=== PATIENT | female | born 1995 | race African-American/Black ===

== ENCOUNTER 2019-12-08 14:18 | Emergency (ER) | payer OTHER ==
--- NOTE | 2019-12-08 15:15 | ER Document Report ---
ED Medical Screen (RME) - General Chief Complaint: Abdominal Pain Stated Complaint: ABDOMINAL PAIN Time Seen by Provider: 12/08/19 15:11 Mode of Arrival: Ambulatory Information source: Patient Notes: 24-year-old female presents to ED for complaint of left pelvic pain. She states her menstrual cycle is due on 30 November. She states it started on the but only lasted 2 days normally she has a 5-day cycle. She states that she started again today and it was like jelly clots on the end of the tampon. She states she does not smoke she does socially drink does not use any drugs and has no medical history. She states she does have a family history of ovarian cancer and is concerned. Patient is alert oriented respirations regular nonlabored speaking in full sentences. I have greeted and performed a rapid initial assessment of this patient. A comprehensive ED assessment and evaluation of the patient, analysis of test results and completion of medical decision making process will be conducted by an additional ED providers. Physical Exam - Vital signs Vitals: Temp Pulse Resp BP Pulse Ox 98.7 F 90 16 120/60 98 12/08/19 14:37 12/08/19 14:37 12/08/19 14:37 12/08/19 14:37 12/08/19 14:37 Course - Vital Signs Vital signs: Temp Pulse Resp BP Pulse Ox 98.7 F 90 16 120/60 98 12/08/19 14:37 12/08/19 14:37 12/08/19 14:37 12/08/19 14:37 12/08/19 14:37
--- NOTE | 2019-12-08 16:25 | RADIOLOGY REPORT (SQ) ---
EXAM DESCRIPTION: U/S NON-OB PELVIS TV W/O DOP IMAGES COMPLETED DATE/TIME: 12/08/2019 2:48 pm REASON FOR STUDY: Left pelvic pain see HPI COMPARISON: None. TECHNIQUE: Dynamic and static grayscale images acquired of the pelvis via transvaginal approach and recorded on PACS. Additional selected color Doppler and spectral images recorded. LIMITATIONS: None. FINDINGS: UTERUS: Contour normal. No mass. ENDOMETRIAL STRIPE: No focal or generalized thickening. No masses. CERVIX: No nabothian cysts. RIGHT OVARY AND DOPPLER: Normal size. Multiple small ovarian follicles. No worrisome masses. Normal arterial vascular flow without evidence for torsion. LEFT OVARY AND DOPPLER: Normal size. Small ovarian follicles. No worrisome masses. Normal arterial vascular flow without evidence for torsion. FREE FLUID: None noted. OTHER: No other significant finding. MEASUREMENTS: UTERUS: 8.2 x 4.9 x 5 cm ENDOMETRIAL STRIPE: 6 mm RIGHT OVARY: 3.6 x 1.7 x 2.5 cm LEFT OVARY: 2.8 x 1.6 x 1.9 cm IMPRESSION: No sonographic abnormality of the uterus or ovaries. TECHNICAL DOCUMENTATION: JOB ID: [id number] [employer]- All Rights Reserved Rev-07/23 Reading location - IP/workstation name: [email or web address]
[2019-12-08 16:50] LABS: ABSOLUTE EOSINOPHILS # (AUTO) 0.1 10^3/uL (0.0-0.6); ABSOLUTE LYMPHOCYTES (AUTO) 2.6 10^3/uL (0.5-4.7); ABSOLUTE MONOCYTES (AUTO) 0.5 10^3/uL (0.1-1.4); ABSOLUTE NEUT (AUTO) 2.6 10^3/uL (1.7-8.2); BASOPHILS % (AUTO) 0.8 % (0-2); EOSINOPHILS % (AUTO) 1.4 % (0-6); HEMOGLOBIN 13.1 g/dL (12.0-15.5); MEAN CORPUSCULAR HEMOGLOBIN 25.3 pg (27.0-33.4); MEAN CORPUSCULAR HGB CONC 32.7 g/dL (32.0-36.0); MEAN CORPUSCULAR VOLUME 78 fl (80-97); MONOCYTES % (AUTO) 8.7 % (3-13); PLATELET COUNT 348 10^3/uL (150-450); RED BLOOD COUNT 5.16 10^6/uL (3.72-5.28); RED CELL DISTRIBUTION WIDTH 18.8 % (11.5-14.0); SEGMENTED NEUTROPHILS % (AUTO) 45.1 % (42-78); TOTAL CELLS COUNTED % (AUTO) 100 %; WHITE BLOOD COUNT 5.8 10^3/uL (4.0-10.5)
[2019-12-08 17:02] LABS: ALBUMIN 4.6 g/dL (3.5-5.0); ALKALINE PHOSPHATASE 68 U/L (38-126); ANION GAP 11 (5-19); ASPARTATE AMINO TRANSFERASE 24 U/L (14-36); BILIRUBIN,DIRECT 0.4 mg/dL (0.0-0.4); BILIRUBIN,TOTAL 0.8 mg/dL (0.2-1.3); BLOOD UREA NITROGEN 8 mg/dL (7-20); CALCIUM 9.4 mg/dL (8.4-10.2); CARBON DIOXIDE 26 mmol/L (22-30); CHLORIDE 104 mmol/L (98-107); GLUCOSE 89 mg/dL (75-110); NEONATAL BILIRUBIN RESULT 0.4 mg/dL (0.1-1.1); POTASSIUM 4.3 mmol/L (3.6-5.0); TOTAL PROTEIN 8.3 g/dL (6.3-8.2)
[2019-12-08 18:08] LABS: APPEARANCE,URINE CLEAR; BILIRUBIN,URINE NEGATIVE (NEGATIVE); COLOR,URINE YELLOW; GLUCOSE, URINE NEGATIVE (NEGATIVE); KETONES,URINE NEGATIVE (NEGATIVE); LEUKOCYTE ESTERASE,URINE NEGATIVE (NEGATIVE); NITRITE,URINE NEGATIVE (NEGATIVE); PROTEIN,URINE NEGATIVE (NEGATIVE); URINE SPECIFIC GRAVITY 1.015; UROBILINOGEN,URINE NEGATIVE mg/dL (<2.0)
--- NOTE | 2019-12-08 21:00 | ER Document Report ---
ED GI/ - General Chief Complaint: Abdominal Pain Stated Complaint: ABDOMINAL PAIN Time Seen by Provider: 12/08/19 15:11 Primary Care Provider: [facility] [Provider Group] - Follow up in 1 week Mode of Arrival: Ambulatory Notes: Patient is a 24-year-old female who presents the emergency department with a chief complaint of the left lower pelvic pain. Patient states that she had her menstrual cycle, but was only for a few days starting around the November and then she stopped and then ended up having some bleeding again. Patient states that this is never happened before. Patient is sexually active. Does not have any concern for STDs. Patient has history of bacterial vaginosis and chlamydia in the past. - Related Data Allergies/Adverse Reactions: No Known Allergies Allergy (Unverified 12/08/19 19:05) Past Medical History - General Information source: Patient - Social History Smoking Status: Never Smoker Chew tobacco use (# tins/day): No Frequency of alcohol use: Social Drug Abuse: None Family History: Reviewed & Not Pertinent Patient has homicidal ideation: No Review of Systems - Review of Systems Notes: REVIEW OF SYSTEMS: CONSTITUTIONAL : Denies recent illness. Denies recent unintentional weight l oss. Denies fever, chills, or sweats. EENT: Denies eye, ear, throat, or mouth pain, discharge, or symptoms. Denies nasal or sinus congestion. CARDIOVASCULAR: Denies chest pain. RESPIRATORY: Denies shortness of breath, cough, congestion, difficulty breathing, or wheezing. GASTROINTESTINAL: Denies nausea, vomiting, and diarrhea. Denies constipation. See HPI. GENITOURINARY: Denies difficulty urinating, burning, blood in urine, urgency or frequency. FEMALE GENITOURINARY: See HPI. MUSCULOSKELETAL: Denies neck and back pain. Denies joint pain or swelling. SKIN: Denies rash, itchiness, or lesions HEMATOLOGIC : Denies easy bruising or bleeding. LYMPHATIC: Denies swollen, painful, enlarged glands. NEUROLOGICAL: Denies no numbness or tingling denies weakness. Denies headache. Denies altered mental status. Denies alteration in speech. PSYCHIATRIC: Denies stress, anxiety, alteration in sleep patterns, or depression. All other systems reviewed and negative. Physical Exam - Vital signs Vitals: Temp Pulse Resp BP Pulse Ox 98.7 F 90 16 120/60 98 12/08/19 14:37 12/08/19 14:37 12/08/19 14:37 12/08/19 14:37 12/08/19 14:37 - Notes Notes: PHYSICAL EXAMINATION: GENERAL: Appears well, healthy, well-nourished, no acute distress. HEAD: Normocephalic, atraumatic. EYES: PERRL, conjunctiva normal, all extraocular movements intact, sclera nonic teric ENT: Moist mucous membranes. NECK: Supple, no noticeable swelling, redness, rash. Normal range of motion. LUNGS: Equal breath sounds bilaterally and clear to auscultation. No wheezes rales or rhonchi. CARDIOVASCULAR: S1-S2, regular rate, regular rhythm. Radial pulses 2+, normal. ABDOMEN: Normoactive bowel sounds. Soft, nontender, no guarding, no rebound tenderness, and no masses palpated. EXTREMITIES: Normal strength and range of motion, no pitting or edema. No cyanosis. NEUROLOGICAL: Moves all extremities upon command. Strength 5/5 in all extremities. PSYCH: Normal mood, normal affect. SKIN: Warm, dry. No rash, lesions, ulcerations noted. Normal skin turgor. ELECTRONIC PARTS SALESPERSON: See course. Course - Re-evaluation Re-evalutation: 12/08/19 20:59 Pelvic exam done with PAVAN Frances at bedside. No cervical patient tenderness noted. Slight left adnexal tenderness noted. Hematology is unremarkable. No leukocytosis or anemia noted. hCG is negative. Urinalysis shows small amount of blood in her urine, but this may be due to her vaginal bleeding. Transvaginal ultrasound shows cysts bilaterally. Discussed this with the patient. 12/08/19 21:43 Presentation is most consistent with bacterial vaginosis. Examination is without evidence of cervical motion tenderness, adnexal tenderness, no abdominal tenderness. Do not suspect tubo-ovarian abscess, gonorrhea, chlamydia, or pelvic inflammatory disease. Vitals within normal limits. Wet mount does demonstrate bacteria and white blood cells. Patient will be started on metronidazole. She has been discharged home with return precautions and follow- up recommendations. Patient is also agreeing to be empirically treated for gonorrhea and chlamydia. She is in agreement with this plan. Follow-up precautions were given. Verbal discharge instructions were given to the patient. They verbalized understanding. They are stable for discharge. - Vital Signs Vital signs: Temp Pulse Resp BP Pulse Ox 98.7 F 72 12 122/61 99 12/08/19 22:08 12/08/19 22:08 12/08/19 22:08 12/08/19 22:08 12/08/19 22:08 - Laboratory Result Diagrams: 12/08/19 16:29 12/08/19 16:29 Laboratory results interpreted by me: 12/08/19 12/08/19 12/08/19 14:37 16:29 16:29 MCV 78 L MCH 25.3 L RDW 18.8 H Total Protein 8.3 H Urine Blood SMALL H Urine Ascorbic Acid 20 H Discharge - Discharge Clinical Impression: Pelvic pain, Bacterial vaginosis Condition: Stable Disposition: HOME, SELF-CARE Additional Instructions: You have an overgrowth of natural vaginal bacteria, called bacterial vaginosis. You are being treated with an antibiotic called metronidazole. Do not drink alcohol while taking this medication. Complete all of the antibiotic even if your symptoms have resolved. Return for abdominal pain, vomiting, fever of greater than 101F, or any other symptoms that are worrisome to you. Please follow-up with your ACCOUNTING METHODS ANALYST or primary care doctor as needed. You were also treated for gonorrhea and chlamydia here in the emergency department. You will be called with your results. Prescriptions: Metronidazole [Flagyl 500 mg Tablet] 500 mg PO Q6H #28 tablet Referrals: [facility] [Provider Group] - Follow up in 1 week
[2019-12-08 21:17] LABS: BACTERIA (WET MOUNT) 4+ BACTERIA SEEN; EPITHELIALS (WET MOUNT) 3+ EPITHELIALS SEEN; RBCS (WET MOUNT) 4+ RBCS SEEN; T.VAGINALIS (WET MOUNT) NO TRICHOMONAS SEEN; WBCS (WET MOUNT) 1+ WBCS SEEN; YEAST (WET MOUNT) NO YEAST SEEN
[2019-12-08] MEDS ORDERED: AZITHROMYCIN 250 MG TABLET PO ONE (21:44)
[2019-12-08] MEDS ORDERED: CEFTRIAXONE INJ 250 MG VIAL IM ONE (21:44)
[2019-12-08] MEDS ORDERED: LIDOCAINE 1% INJ-PF (10 MG/ML) 30 ML SDV INJ ONE (21:44)
[2019-12-08 22:10] VITALS: BP 122/61
[2019-12-08 22:42] LABS: CHLAM PCR NOT DETECTED (NOT DETECT)
== END 2019-12-08 22:09 | disposition home or self-care (01) ==
LOC: ER 14:18
DX: N76.0 Acute vaginitis (principal); B96.89 Other specified bacterial agents as the cause of diseases classified elsewhere; R10.2 Pelvic and perineal pain; R31.9 Hematuria, unspecified
CPT/HCPCS: 99284; 96372; 36415; 87210; 84702; 85025; 80053; 81001; 87491; 87591; 76830; J3490; J0696